=== PATIENT | male | born 1980 ===

== ENCOUNTER 2018-01-07 18:05 | Emergency (ER) | payer OTHER ==
[~2018-01-07] VITALS: Ht 185.4 cm; Wt 89.8 kg
== END 2018-01-07 19:48 | disposition home or self-care (01) ==
LOC: ER 18:05
DX: N41.0 Acute prostatitis (principal)

== ENCOUNTER → 2018-04-17 | Emergency (ER) | payer OTHER ==
[~2018-04-17] VITALS: Ht 185.4 cm; Wt 93.0 kg
== END | disposition home or self-care (01) ==
LOC: ER 05:22
DX: R30.0 Dysuria (principal); N50.89 Other specified disorders of the male genital organs